=== PATIENT | female | born 1985 | race Caucasian/White ===

== ENCOUNTER 2017-10-17 19:16 | Outpatient (CLI) | payer MEDICAID | END 2017-10-17 23:59 | disposition short-term general hospital (02) | LOC: EMS 19:16 | PROVIDERS: ATTEND Surgery | DX: O26.893 Other specified pregnancy related conditions, third trimester (principal) | CPT/HCPCS: A0425; A0427 ==

== ENCOUNTER 2020-02-10 08:00 | Outpatient (CLI) | payer MEDICAID | END 2020-02-10 23:59 | disposition home or self-care (01) | LOC: LAB.R 08:00 | PROVIDERS: ATTEND Family Medicine | DX: J06.9 Acute upper respiratory infection, unspecified (principal) | CPT/HCPCS: 81599; 87275; 87276 ==

== ENCOUNTER 2020-11-01 08:00 | Outpatient (CLI) | payer MEDICAID ==
[2020-11-01 13:04] LABS: CALCIUM 9.5 mg/dL (8.5-10.3); CREATININE 0.7 mg/dL (0.4-1.0)
== END 2020-11-01 23:59 | disposition home or self-care (01) ==
LOC: LAB.WCP 08:00
PROVIDERS: ATTEND Family Medicine
DX: L73.2 Hidradenitis suppurativa (principal)
CPT/HCPCS: 36415; 80048

== ENCOUNTER 2021-01-18 08:00 | Outpatient (CLI) | payer MEDICAID ==
[2021-01-18 18:35] LABS: CALCIUM 9.7 mg/dL (8.5-10.3); CREATININE 0.7 mg/dL (0.4-1.0)
== END 2021-01-18 23:59 | disposition home or self-care (01) ==
LOC: LAB.WCP 08:00
PROVIDERS: ATTEND Family Medicine
DX: L73.2 Hidradenitis suppurativa (principal); F41.9 Anxiety disorder, unspecified
CPT/HCPCS: 36415; 80048; 84443

== ENCOUNTER 2021-01-31 08:00 | Outpatient (CLI) | payer MEDICAID | END 2021-01-31 23:59 | disposition home or self-care (01) | LOC: LAB.WCP 08:00 | PROVIDERS: ATTEND Family Medicine | DX: R30.0 Dysuria (principal) | CPT/HCPCS: 87086 ==

== ENCOUNTER 2021-03-27 12:12 | Outpatient (CLI) | payer MEDICAID ==
--- NOTE | 2021-03-27 15:44 | XRAY Report ---
PROCEDURE: Knee 4 View LT INDICATIONS: KNEE PAIN LEFT (KNEE STANDING) TECHNIQUE: 3 views of the left knee(s) were acquired. COMPARISON: None. FINDINGS: Bones: No fractures or dislocations. No suspicious bony lesions. Soft tissues: No joint effusion. No suspicious soft tissue calcifications. IMPRESSION: No acute finding. Reviewed by: Joel Larose MD on 03/27/2021 3:43 PM PDT Approved by: Joel Larose MD on 03/27/2021 3:43 PM PDT Station ID: [id number]
== END 2021-03-27 12:13 | disposition home or self-care (01) ==
LOC: DI 12:12
PROVIDERS: ATTEND Family Medicine
DX: M25.562 Pain in left knee (principal)

== ENCOUNTER 2021-05-08 14:30 | Outpatient (CLI) | payer MEDICAID ==
--- NOTE | 2021-05-08 13:14 | XRAY Report ---
PROCEDURE: Knee 2 View LT INDICATIONS: L KNEE PX TECHNIQUE: 2 views of the left knee(s) were acquired. COMPARISON: None. FINDINGS: Bones: No fractures or dislocations. No suspicious bony lesions. Mild medial compartment narrowing bilaterally. Soft tissues: No joint effusion. No suspicious soft tissue calcifications. IMPRESSION: Mild bilateral medial compartment narrowing. No acute fracture. No osseous lesion. If sym ptoms and/or clinical suspicion for pathology continue, further assessment with repeat plain films, o r advanced imaging (e.g., CT, MRI, or bone scan) is recommended for further assessment. Reviewed by: Corwin Li MD on 05/08/2021 1:12 PM PDT Approved by: Corwin Li MD on 05/08/2021 1:12 PM PDT Station ID: [id number]
== END 2021-05-08 23:59 | disposition home or self-care (01) ==
LOC: DI.N 14:30
PROVIDERS: ATTEND Physician Assistant
DX: M25.562 Pain in left knee (principal)

== ENCOUNTER 2021-11-14 10:52 | Outpatient (CLI) | payer MEDICAID ==
[2021-11-15 14:47] LABS: HIV AG/AB 4TH GEN NON-REACTIVE (NON-REACTIVE)
[2021-11-16 09:46] LABS: HSV 1 IGG TYPE SPECIFIC AB <0.90 index; HSV 2 IGG TYPE SPECIFIC AB 4.89 index
== END 2021-11-14 23:59 | disposition home or self-care (01) ==
LOC: LAB.WCP 10:52
PROVIDERS: ATTEND Family Medicine
DX: Z11.3 Encounter for screening for infections with a predominantly sexual mode of transmission (principal)
CPT/HCPCS: 81599; 86592; 86695; 86696; 87389

== ENCOUNTER 2022-01-11 18:52 | Outpatient (CLI) | payer MEDICAID ==
--- NOTE | 2022-01-12 08:20 | XRAY Report ---
PROCEDURE: Chest 2 View X-Ray INDICATIONS: DYSPNEA ON EXERTION TECHNIQUE: 2 view(s) of the chest. COMPARISON: None. FINDINGS: SUPPORT DEVICES: None. LUNGS/PLEURA: No focal consolidation, pleural effusion or space-occupying pneumothorax. MEDIASTINUM: The cardiomediastinal silhouette is within normal limits. BONES/SOFT TISSUES: No acute abnormality. IMPRESSION: 1.No acute cardiopulmonary abnormality. Reviewed by: Lb Mosley MD on 01/12/2022 8:18 AM [facility] Approved by: Lb Mosley MD on 01/12/2022 8:18 AM [facility] Station ID: [id number]
== END 2022-01-11 23:59 | disposition home or self-care (01) ==
LOC: DI.N 18:52
PROVIDERS: ATTEND Physician Assistant
DX: R06.09 Other forms of dyspnea (principal); Z20.822 Contact with and (suspected) exposure to COVID-19

== ENCOUNTER 2022-02-04 16:00 | Outpatient (CLI) | payer MEDICAID | END 2022-02-04 23:59 | disposition home or self-care (01) | LOC: LAB 16:00 | PROVIDERS: ATTEND Family Medicine | DX: R30.0 Dysuria (principal) | CPT/HCPCS: 87077; 87086 ==

== ENCOUNTER 2022-02-14 08:00 | Outpatient (CLI) | payer MEDICAID ==
[2022-02-15 01:22] LABS: BACTERIAL VAGINOSIS DNA NEGATIVE (NEGATIVE); CANDIDA GLABRATA DNA NEGATIVE (NEGATIVE); CANDIDA GROUP DNA NEGATIVE (NEGATIVE); CANDIDA KRUSEI DNA NEGATIVE (NEGATIVE); TRICHOMONAS VAGINALIS DNA NEGATIVE (NEGATIVE)
[2022-02-15 01:52] LABS: CHLAMYDIA TRACHOMATIS DNA NEGATIVE (NEGATIVE); NEISSERIA GONORRHOEAE DNA NEGATIVE (NEGATIVE); TRICHOMONAS VAGINALIS DNA NEGATIVE (NEGATIVE)
== END 2022-02-14 23:59 ==
LOC: LAB.N 08:00
PROVIDERS: ATTEND Family Medicine
DX: R30.0 Dysuria (principal); N89.8 Other specified noninflammatory disorders of vagina
CPT/HCPCS: 87086; 87491; 87591; 87661; 87801

== ENCOUNTER 2022-06-23 08:00 | Outpatient (CLI) | payer MEDICAID | END 2022-06-23 23:59 | disposition home or self-care (01) | LOC: LAB.N 08:00 | PROVIDERS: ATTEND Nurse Practitioner | DX: Z32.00 Encounter for pregnancy test, result unknown (principal) | CPT/HCPCS: 36415; 84702; 84703 ==

== ENCOUNTER 2023-04-18 19:04 | Outpatient (CLI) | payer MEDICAID | END 2023-04-18 23:59 | disposition critical access hospital (66) | LOC: EMS 19:04 | DX: R06.02 Shortness of breath (principal); R09.89 Other specified symptoms and signs involving the circulatory and respiratory systems; Z20.822 Contact with and (suspected) exposure to COVID-19 | CPT/HCPCS: A0425; A0429; A0999 ==

== ENCOUNTER 2023-04-18 19:24 | Inpatient (IN) | payer MEDICAID ==
[2023-04-18] MEDS ORDERED: IPRATROPIUM/ALBUTEROL 3 ML NEB INH STA (19:37)
[2023-04-18] MEDS ORDERED: methylPREDNISolone SUCCINATE 125 MG/2 ML VIAL IVP STA (19:38)
[2023-04-18] MEDS ORDERED: ALBUTEROL NEB 2.5 MG/3 ML INH STA ×4 (19:38→21:27)
[2023-04-18] MEDS ORDERED: KETOROLAC 30 MG/ML VIAL IVP STA (19:42)
--- NOTE | 2023-04-18 19:42 | ED Physician Documentation ---
History of Present Illness - Stated complaint Stated Complaint: SOA - Chief complaint Chief Complaint: Resp - History obtained from History obtained from: Patient, EMS - Additonal information Additional information: 37-year-old woman with history of asthma and seasonal allergies presents with COVID exposure 8 days ago and cough productive of clear sputum over the past few days with shortness of breath worsening today despite 3 nebulizer treatments at home. Patient presented to clinic and was found to have room air oxygen saturation of 84%. EMS was called and 4 L of oxygen was administered with improvement. Patient denies chest pain but does endorse body aches, fatigue, fever and chills, productive cough. 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, Other HEENT: Tonsil/Adenoidectomy - Present Medications Home Medications: Ambulatory Orders Medication Instructions Recorded Confirmed HYDROcod/ACETAM 5/325 [[place] 5/325] 1 - 2 tablet PO Q6H PRN #20 tablet 06/06/22 Ondansetron Odt [Zofran] 4 mg TL Q6H PRN #10 tablet 06/06/22 cephALEXin [Keflex] 500 mg PO Q6H #28 cap 06/06/22 - Allergies Allergies/Adverse Reactions: Allergies Allergy/AdvReac Type Severity Reaction Status Date / Time amoxicillin AdvReac Unknown Verified 06/06/22 05:15 Penicillins AdvReac Unknown Verified 06/06/22 05:15 - Social History Does the pt smoke?: No Smoking Status: Never smoker Does the pt drink ETOH?: Yes Does the pt have substance abuse?: No - Immunizations Immunizations are current?: Yes - POLST Patient has POLST: No PD ED PE NORMAL - Vitals Vital signs reviewed: Yes - General General: Alert and oriented X 3, No acute distress, Well developed/nourished - HEENT HEENT: Atraumatic, PERRL, EOMI - Neck Neck: Supple, no meningeal sign - Cardiac Cardiac: RRR - Respiratory Respiratory: Other (BL diffuse wheezing. no accessory muscle use. at the time of my exam, patient had o2 sat 93% RA) - Abdomen Abdomen: Non tender, Non distended - Derm Derm: Normal color, Warm and dry - Extremities Extremities: No deformity, No edema - Neuro Neuro: Alert and oriented X 3 Results - Vitals Vitals: Vital Signs - 24 hr 04/18/23 04/18/23 04/18/23 19:29 19:50 20:00 Temperature 36.6 C Heart Rate 103 H 96 98 Respiratory 22 26 H 24 Rate Blood Pressure 134/99 H O2 Saturation 93 If not protocol 2 2 : Oxygen Flow, liters/minute 04/18/23 04/18/23 04/18/23 20:10 20:15 20:16 Temperature Heart Rate 92 Respiratory 24 Rate Blood Pressure O2 Saturation 90 L 95 If not protocol 2 3 : Oxygen Flow, liters/minute 04/18/23 20:46 Temperature Heart Rate 103 H Respiratory 20 Rate Blood Pressure 130/67 O2 Saturation 93 If not protocol 3 : Oxygen Flow, liters/minute Oxygen O2 Source Nasal cannula Oxygen Flow Rate 2 - Labs Labs: Laboratory Tests 04/18/23 04/18/23 04/18/23 19:50 19:50 19:50 WBC 14.2 H RBC 4.89 Hgb 14.3 Hct 43.7 MCV 89.4 MCH 29.2 MCHC 32.7 RDW 12.9 Plt Count 228 MPV 10.0 Neut # (Auto) Not Reportable Lymph # (Auto) Not Reportable [place] # (Auto) Not Reportable Eos # (Auto) Not Reportable Baso # (Auto) Not Reportable Absolute Nucleated RBC Not Reportable Total Counted 100 Band Neuts % (Manual) 0 Abnorm Lymph % (Manual) 0 Nucleated RBC % Not Reportable Neutrophils # (Manual) 9.4 H Lymphocytes # (Manual) 2.4 Monocytes # (Manual) 0.7 Eosinophils # (Manual) 1.7 H Basophils # (Manual) 0.0 Differential Comment MANUAL DIFFERENTIAL Platelet Estimate NORMAL (130-450,000) Platelet Morphology NORMAL APPEARANCE RBC Morph Micro Appear NORMAL APPEARANCE VBG pH 7.383 VBG pCO2 45.7 VBG pO2 29.4 VBG HCO3 26.6 VBG Total CO2 28.0 VBG O2 Saturation 59.0 L VBG Base Excess 1.0 Sodium 140 Potassium 3.9 Chloride 104 Carbon Dioxide 28 Anion Gap 8.0 BUN 8 Creatinine 0.4 Estimated GFR (MDRD) 182 Glucose 109 H Calcium 8.7 Total Bilirubin 0.9 AST 17 ALT 16 Alkaline Phosphatase 66 Total Protein 7.1 Albumin 3.7 Globulin 3.4 Albumin/Globulin Ratio 1.1 Lipase 25 SARS-CoV-2 (PCR) 04/18/23 19:55 WBC RBC Hgb Hct MCV MCH MCHC RDW Plt Count MPV Neut # (Auto) Lymph # (Auto) [place] # (Auto) Eos # (Auto) Baso # (Auto) Absolute Nucleated RBC Total Counted Band Neuts % (Manual) Abnorm Lymph % (Manual) Nucleated RBC % Neutrophils # (Manual) Lymphocytes # (Manual) Monocytes # (Manual) Eosinophils # (Manual) Basophils # (Manual) Differential Comment Platelet Estimate Platelet Morphology RBC Morph Micro Appear VBG pH VBG pCO2 VBG pO2 VBG HCO3 VBG Total CO2 VBG O2 Saturation VBG Base Excess Sodium Potassium Chloride Carbon Dioxide Anion Gap BUN Creatinine Estimated GFR (MDRD) Glucose Calcium Total Bilirubin AST ALT Alkaline Phosphatase Total Protein Albumin Globulin Albumin/Globulin Ratio Lipase SARS-CoV-2 (PCR) NOT DETECTED PD Medical Decision Making - ED course ED course: 37-year-old woman with hx asthma and recent COVID exposure presents with productive cough, wheezing, and shortness of breath with O2 sat 84% room air in clinic. She is now satting 93% room air in the emergency department but endorsing subjective shortness of breath therefore we will provide nebulizer treatments, steroids, and check a chest x-ray, CBC, abdominal panel, and venous blood gas. IV toradol provided for myalgias and general malaise with improvement. Patient with leukocytosis WBC 14.2 on labwork. VBG not indicating co2 retention. she has persistent coarse breath sounds bilaterally after 3 neb treatments and is persistently hypoxic. O2 sat dropped after initial eval on RA into mid 80s therefore she was placed on oxygen. She is currently requiring 4L o2 and satting 90%. CXR per my interpretation and that of outside radiologist is significant for interstitial prominence and RLL opacity concerning for pneumonia. 2L IVF, IV levofloxacin, and blood cultures/lactate have been ordered. Plan to admit for hypoxia in setting of RLL and interstitial pneumonia. Patient meets SIRS criteria (leukocytosis, tachycardia, indicating sepsis given RLL pneumonia on CXR). d/w Dr. Cali, telehospitalist for admission Departure - Departure Disposition: ED Place in Observation Clinical Impression: Pneumonia, Hypoxia, Sepsis Condition: Stable
[2023-04-18 19:56] LABS: BASOPHILS % (AUTO) 0.9 %; EOSINOPHILS % (AUTO) 10.1 %; HCT - HEMATOCRIT 43.7 % (37.0-47.0); HGB - HEMOGLOBIN 14.3 g/dL (12.0-16.0); LYMPHOCYTES % (AUTO) 11.7 %; MEAN CORPUSCULAR HEMOGLOBIN 29.2 pg (27.0-31.0); MEAN CORPUSCULAR HGB CONC 32.7 g/dL (32.0-36.0); MEAN CORPUSCULAR VOLUME 89.4 fL (81.0-99.0); MONOCYTES % (AUTO) 7.3 %; NEUTROPHILS % (AUTO) 69.7 %; PLT - PLATELET COUNT 228 10^3/uL (130-450); RED BLOOD COUNT 4.89 10^6/uL (4.20-5.40); RED CELL DISTRIBUTION WIDTH 12.9 % (12.0-15.0); VBG PH 7.383 (7.31-7.41); WHITE BLOOD COUNT 14.2 x10^3/uL (4.8-10.8)
[2023-04-18 19:57] LABS: VBG HCO3 26.6 mmol/L (23-28); VBG PCO2 45.7 mmHg (41-51); VBG PO2 29.4 mmHg (25-47)
[2023-04-18 19:58] LABS: ABNORMAL LYMPHS % (MANUAL) 0 %; BAND NEUTROPHILS % (MANUAL) 0 %
--- NOTE | 2023-04-18 20:02 | XRAY Report ---
PROCEDURE: Chest 1 View X-Ray INDICATIONS: soa TECHNIQUE: One view of the chest was acquired. COMPARISON: None. FINDINGS: Surgical changes and devices: None. Lungs and pleura: Mild diffuse perihilar interstitial thickening. Small airspace opacity at the righ t lateral lung base. Mediastinum: Mediastinal contours appear normal. Heart size is normal. Bones and chest wall: No suspicious bony lesions. Overlying soft tissues appear unremarkable. IMPRESSION: Mild perihilar interstitial thickening may indicate bronchitis or pneumonitis. There is a small amoun t of airspace opacity in the right lower lung which may be infectious or postobstructive atelectasis. Reviewed by: Julia Ireland MD on 04/18/2023 8:01 PM PDT Approved by: Julia Ireland MD on 04/18/2023 8:01 PM PDT Station ID: [id number]
[2023-04-18 20:16] LABS: ALBUMIN 3.7 g/dL (3.2-5.5); ALBUMIN/GLOBULIN RATIO 1.1 (1.0-2.2); BILIRUBIN,TOTAL 0.9 mg/dL (0.2-1.0); CALCIUM 8.7 mg/dL (8.5-10.3); CREATININE 0.4 mg/dL (0.4-1.0); POTASSIUM 3.9 mmol/L (3.5-5.0); TOTAL PROTEIN 7.1 g/dL (6.7-8.2)
[2023-04-18 20:19] LABS: DIFFERENTIAL COMMENT MANUAL DIFFERENTIAL; EOSINOPHILS # (MANUAL) 1.7 10^3/uL (0-0.7); LYMPHOCYTES # (MANUAL) 2.4 10^3/uL (1.5-3.5); LYMPHOCYTES % (MANUAL) 17 %; MONOCYTES # (MANUAL) 0.7 10^3/uL (0.0-1.0); NEUTROPHILS # (MANUAL) 9.4 10^3/uL (1.5-6.6); PLATELET ESTIMATE, MANUAL NORMAL (130-450,000) (NORMAL); PLATELET MORPHOLOGY NORMAL APPEARANCE (NORMAL); RBC MORPHOLOGY (MULTIPLE) NORMAL APPEARANCE (NORMAL)
[2023-04-18] MEDS ORDERED: ALBUTEROL NEB 2.5 MG/3 ML INH ONE (21:27)
[2023-04-18] MEDS ORDERED: levoFLOXacin 750 MG/150 ML 750 MG/150 ML BAG IV STA (21:27)
[2023-04-18] MEDS ORDERED: SODIUM CHLORIDE 0.9% 1,000 ML IV STA ×2 (21:27→21:32)
--- NOTE | 2023-04-18 21:43 | HISTORY & PHYSICAL EXAMINATION ---
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, Other HEENT: reports: Tonsil/Adenoidectomy - POLST Patient has POLST: No Meds/Allgy - Home Medications Home Medications: Ambulatory Orders Medication Instructions Recorded Confirmed HYDROcod/ACETAM 5/325 [[place] 5/325] 1 - 2 tablet PO Q6H PRN #20 tablet 06/06/22 Ondansetron Odt [Zofran] 4 mg TL Q6H PRN #10 tablet 06/06/22 cephALEXin [Keflex] 500 mg PO Q6H #28 cap 06/06/22 - Allergies Allergies/Adverse Reactions: Allergies Allergy/AdvReac Type Severity Reaction Status Date / Time amoxicillin AdvReac Unknown Verified 06/06/22 05:15 Penicillins AdvReac Unknown Verified 06/06/22 05:15 Review of Systems - Respiratory Respiratory: reports: Cough, SOB at rest, SOB with exertion Exam - Vital Signs Vital Signs: Vital Signs x48h Temp Pulse Resp BP Pulse Ox O2 Flow Rate 04/18/23 20:46 103 H 20 130/67 93 3 04/18/23 20:16 95 3 04/18/23 20:15 90 L 04/18/23 20:10 92 24 2 04/18/23 20:00 98 24 2 04/18/23 19:50 96 26 H 2 04/18/23 19:29 36.6 C 103 H 22 134/99 H 93 - Physical Exam General Appearance: positive: No acute distress Eyes Bilateral: positive: Normal inspection Respiratory: positive: Wheezes, Rhonchi Cardiovascular: positive: Regular rate & rhythm Abdomen: positive: Non-tender Skin: positive: No rash Neurologic/Psychiatric: positive: Oriented x3 Conclusion/Plan - Lab Results Fish Bones: 04/18/23 19:50 04/18/23 19:50 - Other Other Results/Comments: 37 y/o F # acute respiratory failure hypoxic: probabey due to PNA and asthma: levaqmya and tawnya, neb treatment, 02, counseled to stop smoking # astham: nebs, O2 # dvt prophylaxis: heparin sq # code full discussed
[2023-04-18] MEDS ORDERED: ONDANSETRON 4 MG/2 ML VIAL IVP PRN (21:50)
[2023-04-18] MEDS ORDERED: SODIUM CHLORIDE FLUSH 0.9% 10 ML SYRINGE IVP PRN (21:50)
[2023-04-18] MEDS ORDERED: ACETAMINOPHEN 325 MG TABLET PO PRN (21:50)
[2023-04-18] MEDS ORDERED: IPRATROPIUM/ALBUTEROL 3 ML NEB INH PRN (21:54)
--- NOTE | 2023-04-18 22:05 | PROVIDER PROGRESS NOTE ---
Instrumental Musician Note - Instrumental Musician Note Instrumental Musician Note: cxr shows LLL consolidation, more consistent with CAP than COVID and pt tested negative I performed this consultation using real-j[facility] telehealth tools including a live video connection between my location and the patient's location. As the provider for this telehealth service, I attest that I introduced myself to the patient and/or the family, provided my credentials, disclosed my location and determined that based on my review of patient's chart and/or discussion with members of the patient's treatment team, telemedicine via real time, 2 way, interactive audio and video platform is an appropriate and effective means of providing service. The patient/family and I mutually agree that this visit is appropriate for telemedicine as well. Patients have been informed of and agreed to telemedicine management by partnership of [facility] and hospital administration, knowing the limitations of telemedicine. Some elements of this visit were assisted with the audiovisual technology and the bedside nurse. Total time is 45 minutes of which greater than 50% was spent in direct patient care. I answered all medical questions to the best of my ability.
[2023-04-19] MEDS: DOXYCYCLINE INJ 100 MG in SODIUM CHLORIDE 0.9% MINIBAG 100 ML IV SCH ×3 (00:28→22:06)
[2023-04-19] MEDS: HEPARIN 5,000 UNIT/ML VIAL SUBQ SCH ×3 (00:29→22:07)
[2023-04-19] MEDS: SODIUM CHLORIDE FLUSH 0.9% 10 ML SYRINGE IVP SCH ×4 (00:29→23:48)
[2023-04-19] MEDS: SODIUM CHLORIDE 0.9% 1,000 ML IV SCH ×3 (00:29→23:48)
[2023-04-19 05:06] LABS: BASOPHILS % (AUTO) 0.2 %; EOSINOPHILS % (AUTO) 0.1 %; HCT - HEMATOCRIT 40.5 % (37.0-47.0); HGB - HEMOGLOBIN 13.4 g/dL (12.0-16.0); LYMPHOCYTES # (AUTO) 0.7 10^3/uL (1.5-3.5); MEAN CORPUSCULAR HGB CONC 33.1 g/dL (32.0-36.0); MEAN CORPUSCULAR VOLUME 87.7 fL (81.0-99.0); MEAN PLATELET VOLUME 9.6 fL (7.9-10.8); MONOCYTES # (AUTO) 0.2 10^3/uL (0.0-1.0); NEUTROPHILS % (AUTO) 89.4 %; PLT - PLATELET COUNT 310 10^3/uL (130-450); RED BLOOD COUNT 4.62 10^6/uL (4.20-5.40); WHITE BLOOD COUNT 8.9 x10^3/uL (4.8-10.8)
[2023-04-19 05:15] LABS: CALCIUM 9.1 mg/dL (8.5-10.3); CREATININE 0.6 mg/dL (0.4-1.0); POTASSIUM 4.1 mmol/L (3.5-5.0)
[2023-04-19] MEDS: IPRATROPIUM/ALBUTEROL 3 ML NEB INH SCH ×3 (11:15→18:52)
--- NOTE | 2023-04-19 14:36 | PHARMACY PROGRESS NOTE ---
- Best Possible Medication History Admit Date and Time: 04/18/230 Processed by: Pharmacy Medication History completed: Yes Patient Interview: Completed Secondary Source(s): Insurance records (PT knows her meds well. States she gets swollen throat and hives with both amox and pennicilin. When asked how she tollerated the cephalexin prescribed in January pt states she gets hives and a simliar reaction but not as bad. Staes she has had to go to the hospital for the rxns to the amox and pcn.) As the person ultimately responsible for medication therapy, providers are able to order a medication from an existing home medication list in [facility] via the "Reconcile Routine" prior to Confirmation of that medication by pharmacy retail support specialist. Such practice is discouraged except when the physician, in their clinical judgment, deems that a medical need exists for a medication without regard to previous use.
--- NOTE | 2023-04-19 15:19 | PROVIDER PROGRESS NOTE ---
Assessment/Plan - Problem List (1) Acute respiratory failure with hypoxia Assessment/Plan: Patient still needs supplemental O2 to reach saturations greater than 92%. The cause for desaturating is the pneumonia and asthma exacerbation Plan: Treat the underlying pneumonia and asthma exacerbation Promote smoking cessation Continue with supplemental O2, weaning down as tolerated to room air, keeping saturations greater than 92% (2) Pneumonia Assessment/Plan: After blood cultures were taken, the patient was started on empiric levaquin and doxycycline Plan: Order sputum culture We will add Mucinex for pulmonary toilet We will continue with the doxycycline but we need to change the Levaquin since it can add to QT prolongation. Discussed with pharmacy and we will start ertapenem (3) Asthmatic bronchitis with acute exacerbation Assessment/Plan: The cause is the pneumonia Plan: We will order scheduled nebulizers, continue with the as needed nebulizers ordered by telemedicine doctor Will add Mucinex for pulmonary toilet We will continue treating the underlying pneumonia Continue with supplemental O2, target saturations over 92% (4) Long QT syndrome Assessment/Plan: This Dx was found in old records Plan: We will stop meds started by the telemedicine admitting doctor that can add to long QT: Zofran and Levaquin (5) Tobacco use Assessment/Plan: This patient needs education regarding stopping smoking, given her underlying asthma Plan: We will give nicotine patch for urgees (6) Obesity, Class II, BMI 35-39.9 Assessment/Plan: This makes aspects of her care more difficult - Current Meds Current Meds: Current Medications Generic Name Dose Route Start Last Admin Trade Name Freq PRN Reason Stop Dose Admin Acetaminophen 650 mg 04/18/23 21:50 04/19/23 00:29 Acetaminophen 325 Mg Tablet PO 650 mg Q4HR PRN Administration Pain 1 to 4, or Fever Albuterol/Ipratropium 3 ml 04/19/23 11:00 04/19/23 11:15 Ipratropium/Albuterol 3 Ml Neb INH 3 ml RTQID ZACK Administration Heparin Sodium (Porcine) 5,000 unit 04/18/23 22:00 04/19/23 08:52 Heparin 5,000 Unit/Ml Vial SUBQ 04/20/23 00:01 5,000 unit BID ZACK Administration Sodium Chloride 1,000 mls @ 100 mls/hr 04/18/23 22:00 04/19/23 12:45 Normal Saline 0.9% IV 100 mls/hr .Q10H ZACK Administration Doxycycline Hyclate 100 mg/ 100 mls @ 100 mls/hr 04/18/23 23:00 04/19/23 08:49 Sodium Chloride IV 100 mls/hr BID ZACK Administration Sodium Chloride 10 ml 04/19/23 01:00 04/19/23 08:50 Sodium Chloride Flush 0.9% 10 Ml Syringe IVP 10 ml 0100,0900,1700 ZACK Administration - Lab Result Fish Bone Diagrams: 04/19/23 05:00 04/19/23 05:00 - Additional Planning My Orders: My Active Orders 04/19/23 CUL, RESPIRATORY [RM] Stat 04/19/23 10:25 Nebulizer/MDI Tx. [RC] .QID 04/19/23 10:26 Ibuprofen [Motrin] 600 mg PO Q6HR PRN 04/19/23 10:27 Miscellaenous Nursing Order [RC] QSHIFT 04/19/23 11:00 Ipratropium/Albuterol [Duoneb] 3 ml INH RTQID 04/19/23 17:00 Saccharomyces Boulardii [Florastor] 250 mg PO BIDWM 04/20/23 05:00 BMP - BASIC METABOLIC PANEL [CHEM] DAILYLAB CBC - COMP BLD CT W/AUTO DIFF [HEME] DAILYLAB 04/20/23 09:00 Enoxaparin [Lovenox] 40 mg SUBQ DAILY Subjective - Subjective Patient Reports: Shortness of Breath (She is requesting more nebulizers (only prn nebs were ordered by the night telemedicine admitting doctor)) Objective Vital Signs: Vital Signs - 24 hr 04/18/23 04/18/23 04/18/23 19:29 19:50 20:00 Temperature 36.6 C Heart Rate 103 H 96 98 Heart Rate [ Brachial] Respiratory 22 26 H 24 Rate Blood Pressure 134/99 H Blood Pressure [Left Brachial artery] O2 Saturation 93 If not protocol 2 2 : Oxygen Flow, liters/minute 04/18/23 04/18/23 04/18/23 20:10 20:15 20:16 Temperature Heart Rate 92 Heart Rate [ Brachial] Respiratory 24 Rate Blood Pressure Blood Pressure [Left Brachial artery] O2 Saturation 90 L 95 If not protocol 2 3 : Oxygen Flow, liters/minute 04/18/23 04/18/23 04/18/23 20:46 21:25 22:55 Temperature 36.3 C L Heart Rate 103 H 93 Heart Rate [ 103 H Brachial] Respiratory 20 28 H 16 Rate Blood Pressure 130/67 Blood Pressure 141/88 H [Left Brachial artery] O2 Saturation 93 93 If not protocol 3 5 4 : Oxygen Flow, liters/minute 04/19/23 04/19/23 04/19/23 04:51 08:00 11:16 Temperature 36.4 C L 36.4 C L Heart Rate 110 H Heart Rate [ 105 H 90 Brachial] Respiratory 19 20 22 Rate Blood Pressure Blood Pressure 122/64 128/79 [Left Brachial artery] O2 Saturation 93 94 If not protocol 5 5 5 : Oxygen Flow, liters/minute 04/19/23 04/19/23 04/19/23 11:20 11:54 15:05 Temperature 36.4 C L 36.6 C Heart Rate Heart Rate [ 113 H 101 H Brachial] Respiratory 20 20 Rate Blood Pressure Blood Pressure 128/70 139/83 H [Left Brachial artery] O2 Saturation 93 95 If not protocol 5 5 5 : Oxygen Flow, liters/minute Oxygen O2 Source Oxymask Oxygen Flow Rate 2 I&O (Last 24 Hrs): Intake and Output Totals x24h 04/17/23 04/18/23 04/19/23 23:59 23:59 23:59 Intake Total 150 2240 Balance 150 2240 General: Alert, No acute distress HEENT: Mucous membr. moist/pink, Other (She is still wearing an oxy mask) Neck: Supple Neuro: Alert Cardiovascular: Regular rate, No murmurs Respiratory: No respiratory distress (On her Ventimask), Wheezes Abdomen: Soft, Other (Obese) Extremities: No clubbing, No edema - Results Results: Laboratory Results WBC 8.9 x10^3/uL (4.8-10.8) 04/19/23 05:00 RBC 4.62 10^6/uL (4.20-5.40) 04/19/23 05:00 Hgb 13.4 g/dL (12.0-16.0) 04/19/23 05:00 Hct 40.5 % (37.0-47.0) 04/19/23 05:00 MCV 87.7 fL (81.0-99.0) 04/19/23 05:00 MCH 29.0 pg (27.0-31.0) 04/19/23 05:00 MCHC 33.1 g/dL (32.0-36.0) 04/19/23 05:00 RDW 13.0 % (12.0-15.0) 04/19/23 05:00 Plt Count 310 10^3/uL (130-450) 04/19/23 05:00 MPV 9.6 fL (7.9-10.8) 04/19/23 05:00 Neut # (Auto) 8.0 10^3/uL (1.5-6.6) H 04/19/23 05:00 Lymph # (Auto) 0.7 10^3/uL (1.5-3.5) L 04/19/23 05:00 [place] # (Auto) 0.2 10^3/uL (0.0-1.0) 04/19/23 05:00 Eos # (Auto) 0.0 10^3/uL (0.0-0.7) 04/19/23 05:00 Baso # (Auto) 0.0 10^3/uL (0.0-0.1) 04/19/23 05:00 Absolute Nucleated RBC 0.00 x10^3/uL 04/19/23 05:00 Total Counted 100 04/18/23 19:50 Band Neuts % (Manual) 0 % (0-10) 04/18/23 19:50 Abnorm Lymph % (Manual) 0 % 04/18/23 19:50 Nucleated RBC % 0.0 /100WBC 04/19/23 05:00 Neutrophils # (Manual) 9.4 10^3/uL (1.5-6.6) H 04/18/23 19:50 Lymphocytes # (Manual) 2.4 10^3/uL (1.5-3.5) 04/18/23 19:50 Monocytes # (Manual) 0.7 10^3/uL (0.0-1.0) 04/18/23 19:50 Eosinophils # (Manual) 1.7 10^3/uL (0-0.7) H 04/18/23 19:50 Basophils # (Manual) 0.0 10^3/uL (0-0.1) 04/18/23 19:50 Differential Comment MANUAL DIFFERENTIAL 04/18/23 19:50 Platelet Estimate NORMAL (130-450,000) (NORMAL) 04/18/23 19:50 Platelet Morphology NORMAL APPEARANCE (NORMAL) 04/18/23 19:50 RBC Morph Micro Appear NORMAL APPEARANCE (NORMAL) 04/18/23 19:50 VBG pH 7.383 (7.31-7.41) 04/18/23 19:50 VBG pCO2 45.7 mmHg (41-51) 04/18/23 19:50 VBG pO2 29.4 mmHg (25-47) 04/18/23 19:50 VBG HCO3 26.6 mmol/L (23-28) 04/18/23 19:50 VBG Total CO2 28.0 mmol/L (24-29) 04/18/23 19:50 VBG O2 Saturation 59.0 % (60-80) L 04/18/23 19:50 VBG Base Excess 1.0 mmol/L (-2 - +2) 04/18/23 19:50 Sodium 142 mmol/L (135-145) 04/19/23 05:00 Potassium 4.1 mmol/L (3.5-5.0) 04/19/23 05:00 Chloride 109 mmol/L (101-111) 04/19/23 05:00 Carbon Dioxide 22 mmol/L (21-32) 04/19/23 05:00 Anion Gap 11.0 (6-13) 04/19/23 05:00 BUN 11 mg/dL (6-20) 04/19/23 05:00 Creatinine 0.6 mg/dL (0.4-1.0) 04/19/23 05:00 Estimated GFR (MDRD) 114 (>89) 04/19/23 05:00 Glucose 144 mg/dL (70-100) H 04/19/23 05:00 Lactic Acid 1.7 mmol/L (0.5-2.2) 04/19/23 05:00 Calcium 9.1 mg/dL (8.5-10.3) 04/19/23 05:00 Total Bilirubin 0.9 mg/dL (0.2-1.0) 04/18/23 19:50 AST 17 IU/L (10-42) 04/18/23 19:50 ALT 16 IU/L (10-60) 04/18/23 19:50 Alkaline Phosphatase 66 IU/L (42-121) 04/18/23 19:50 Total Protein 7.1 g/dL (6.7-8.2) 04/18/23 19:50 Albumin 3.7 g/dL (3.2-5.5) 04/18/23 19:50 Globulin 3.4 g/dL (2.1-4.2) 04/18/23 19:50 Albumin/Globulin Ratio 1.1 (1.0-2.2) 04/18/23 19:50 Lipase 25 U/L (22-51) 04/18/23 19:50 SARS-CoV-2 (PCR) NOT DETECTED 04/18/23 19:55
[2023-04-19] MEDS: SACCHAROMYCES BOULARDII 250 MG CAPSULE PO SCH (17:03)
[2023-04-19] MEDS: ERTAPENEM 1 GM in SODIUM CHLORIDE 0.9% MINIBAG 100 ML IV SCH (17:03)
[2023-04-19] MEDS ORDERED: levoFLOXacin 500 MG/100 ML 500 MG/100 ML BAG IV SCH (21:00)
[2023-04-19] MEDS: IBUPROFEN 600 MG TABLET PO PRN (22:06)
[2023-04-19] MEDS: guaiFENesin 600 MG TABLET PO SCH (22:07)
[2023-04-19] MEDS: MONTELUKAST 10 MG TABLET PO SCH (22:07)
[2023-04-20 05:17] LABS: BASOPHILS # (AUTO) 0.1 10^3/uL (0.0-0.1); BASOPHILS % (AUTO) 0.9 %; EOSINOPHILS # (AUTO) 0.7 10^3/uL (0.0-0.7); EOSINOPHILS % (AUTO) 5.2 %; HCT - HEMATOCRIT 37.3 % (37.0-47.0); LYMPHOCYTES % (AUTO) 31.6 %; MEAN CORPUSCULAR HEMOGLOBIN 28.9 pg (27.0-31.0); MEAN CORPUSCULAR HGB CONC 32.2 g/dL (32.0-36.0); MEAN CORPUSCULAR VOLUME 89.9 fL (81.0-99.0); MEAN PLATELET VOLUME 9.8 fL (7.9-10.8); MONOCYTES # (AUTO) 0.7 10^3/uL (0.0-1.0); MONOCYTES % (AUTO) 5.3 %; NEUTROPHILS # (AUTO) 7.2 10^3/uL (1.5-6.6); NEUTROPHILS % (AUTO) 56.6 %; PLT - PLATELET COUNT 284 10^3/uL (130-450); RED BLOOD COUNT 4.15 10^6/uL (4.20-5.40); RED CELL DISTRIBUTION WIDTH 13.1 % (12.0-15.0); WHITE BLOOD COUNT 12.7 x10^3/uL (4.8-10.8)
[2023-04-20 05:47] LABS: CALCIUM 8.2 mg/dL (8.5-10.3); CREATININE 0.6 mg/dL (0.4-1.0); POTASSIUM 3.7 mmol/L (3.5-5.0)
[2023-04-20] MEDS: IPRATROPIUM/ALBUTEROL 3 ML NEB INH SCH ×4 (07:35→19:55)
[2023-04-20] MEDS: ENOXAPARIN 40 MG/0.4 ML SYRINGE SUBQ SCH (08:15)
[2023-04-20] MEDS: PANTOPRAZOLE 40 MG TABLET PO SCH (08:15)
[2023-04-20] MEDS: guaiFENesin 600 MG TABLET PO SCH ×2 (08:15→22:30)
[2023-04-20] MEDS: DICLOFENAC SODIUM DR 75 MG TABLET PO SCH (08:15)
[2023-04-20] MEDS: SACCHAROMYCES BOULARDII 250 MG CAPSULE PO SCH ×2 (08:15→17:20)
[2023-04-20] MEDS: DOXYCYCLINE INJ 100 MG in SODIUM CHLORIDE 0.9% MINIBAG 100 ML IV SCH ×2 (08:21→22:31)
[2023-04-20] MEDS: SODIUM CHLORIDE FLUSH 0.9% 10 ML SYRINGE IVP SCH ×2 (08:21→16:28)
[2023-04-20] MEDS: SODIUM CHLORIDE 0.9% 1,000 ML IV SCH (11:09)
--- NOTE | 2023-04-20 15:35 | PROVIDER PROGRESS NOTE ---
Assessment/Plan - Problem List (1) Acute respiratory failure with hypoxia Assessment/Plan: Patient still needs supplemental O2 to reach saturations greater than 92%. The cause for desaturating is the pneumonia and asthma exacerbation Plan: Treat the underlying pneumonia and asthma exacerbation Promote smoking cessation Continue with supplemental O2, weaning down as tolerated to room air, keeping saturations greater than 92%. But will not romote high saturations as she may be lethargic from CO2 retention. She would be willing to go home with a new home oxygen order if needed (2) Pneumonia Assessment/Plan: After blood cultures were taken, the patient was started on empiric levaquin and doxycycline Sputum culture was sent, awaiting results Plan: Cont Mucinex for pulmonary toilet We will continue with the doxycycline but we need to change the Levaquin since it can add to QT prolongation. Discussed with pharmacy and we started ertapenem (3) Asthmatic bronchitis with acute exacerbation Assessment/Plan: The cause is the pneumonia Plan: Cont scheduled nebulizers and as needed nebulizers Cont Mucinex for pulmonary toilet We will continue treating the underlying pneumonia Continue with supplemental O2, target saturations over 92% (4) Long QT syndrome Assessment/Plan: This Dx was found in old records Plan: We stopped meds started by the telemedicine admitting doctor that can add to long QT: Zofran and Levaquin (5) Tobacco use Assessment/Plan: This patient needs education regarding stopping smoking, given her underlying asthma Plan: Cont nicotine patch for urges (6) Obesity, Class II, BMI 35-39.9 Assessment/Plan: This makes aspects of her care more difficult - Current Meds Current Meds: Current Medications Generic Name Dose Route Start Last Admin Trade Name Freq PRN Reason Stop Dose Admin Acetaminophen 650 mg 04/18/23 21:50 04/19/23 00:29 Acetaminophen 325 Mg Tablet PO 650 mg Q4HR PRN Administration Pain 1 to 4, or Fever Albuterol/Ipratropium 3 ml 04/18/23 21:54 04/20/23 00:08 Ipratropium/Albuterol 3 Ml Neb INH 3 ml Q4HR PRN Administration Wheezing Albuterol/Ipratropium 3 ml 04/19/23 11:00 04/20/23 14:39 Ipratropium/Albuterol 3 Ml Neb INH Not Given RTQID ZACK Diclofenac Sodium 75 mg 04/20/23 08:00 04/20/23 08:[address] 75 Mg Tablet PO 75 mg DAILYWM ZACK Administration Enoxaparin Sodium 40 mg 04/20/23 09:00 04/20/23 08:15 Enoxaparin 40 Mg/0.4 Ml Syringe SUBQ 40 mg DAILY ZACK Administration Guaifenesin 600 mg 04/19/23 21:00 04/20/23 08:15 Guaifenesin 600 Mg Tablet PO 600 mg BID ZACK Administration Sodium Chloride 1,000 mls @ 100 mls/hr 04/18/23 22:00 04/20/23 11:09 Normal Saline 0.9% IV 100 mls/hr .Q10H ZACK Administration Doxycycline Hyclate 100 mg/ 100 mls @ 100 mls/hr 04/18/23 23:00 04/20/23 09:21 Sodium Chloride IV Infused BID ZACK Infusion Ertapenem 1 gm/ Sodium 100 mls @ 200 mls/hr 04/19/23 17:00 04/19/23 17:03 Chloride IV 200 mls/hr Q24H ZACK Administration Ibuprofen 600 mg 04/19/23 10:26 04/19/23 22:06 Ibuprofen 600 Mg Tablet PO 600 mg Q6HR PRN Administration Mild Pain or Fever>38C(100.4F) Montelukast Sodium 10 mg 04/19/23 21:00 04/19/23 22:07 Montelukast 10 Mg Tablet PO 10 mg QPM ZACK Administration Pantoprazole Sodium 40 mg 04/20/23 09:00 04/20/23 08:15 Pantoprazole 40 Mg Tablet PO 40 mg DAILY ZACK Administration Saccharomyces Boulardii 250 mg 04/19/23 17:00 04/20/23 08:15 Saccharomyces Boulardii 250 Mg Capsule PO 250 mg BIDWM ZACK Administration Sodium Chloride 10 ml 04/19/23 01:00 04/20/23 08:21 Sodium Chloride Flush 0.9% 10 Ml Syringe IVP 10 ml 0100,0900,1700 ZACK Administration - Lab Result Fish Bone Diagrams: 04/20/23 05:04 04/20/23 05:04 - Additional Planning My Orders: My Active Orders 04/19/23 17:00 Ertapenem [INVanz] 1 gm Sodium Chloride 0.9% Minibag [Normal Saline 0.9% Minibag] 100 ml IV Q24H Saccharomyces Boulardii [Florastor] 250 mg PO BIDWM 04/19/23 17:20 CUL, RESPIRATORY [RM] Stat 04/19/23 21:00 Montelukast [Singulair] 10 mg PO QPM guaiFENesin [Mucinex] 600 mg PO BID 04/20/23 08:[address] [Voltaren] 75 mg PO DAILYWM 04/20/23 09:00 Enoxaparin [Lovenox] 40 mg SUBQ DAILY Pantoprazole [Protonix] 40 mg PO DAILY Subjective - Subjective Patient Reports: Fatigue (Wants to sleep all day, claims the reason is poor sleep at home that previous 4 nights. She is wearing an oxymask.) Objective Vital Signs: Vital Signs - 24 hr 04/19/23 04/19/23 04/19/23 18:50 20:40 23:50 Temperature 36.5 C 36.8 C Heart Rate 98 Heart Rate [ 100 109 H Brachial] Respiratory 20 18 18 Rate Blood Pressure 133/87 H [Left Brachial artery] Blood Pressure 134/83 H [Right Brachial artery] O2 Saturation 97 94 If not protocol 5 5 5 : Oxygen Flow, liters/minute 04/20/23 04/20/23 04/20/23 00:10 06:25 07:38 Temperature 36.6 C Heart Rate 98 98 Heart Rate [ 82 Brachial] Respiratory 18 18 17 Rate Blood Pressure [Left Brachial artery] Blood Pressure 122/72 [Right Brachial artery] O2 Saturation 94 If not protocol 2 4 : Oxygen Flow, liters/minute 04/20/23 10:37 Temperature Heart Rate 90 Heart Rate [ Brachial] Respiratory 18 Rate Blood Pressure [Left Brachial artery] Blood Pressure [Right Brachial artery] O2 Saturation If not protocol 4 : Oxygen Flow, liters/minute Oxygen O2 Source Oxymask Oxygen Flow Rate 2 I&O (Last 24 Hrs): Intake and Output Totals x24h 04/18/23 04/19/23 04/20/23 23:59 23:59 23:59 Intake Total 150 3940 1490 Balance 150 3940 1490 General: No acute distress, Other (Lethargic but awaken and holds a coversation. Obese young WF) HEENT: Mucous membr. moist/pink, Other (wearing an oxymask) Neck: Supple Neuro: Oriented Times 3, Other (Lethargic) Cardiovascular: Regular rate, Other (distant heart sounds due to obesity and large breasts) Respiratory: Wheezes (R side), Rhonchi (R base) Abdomen: Soft, Other (obese) Extremities: No clubbing, No edema, No tenderness/swelling - Results Results: Laboratory Results WBC 12.7 x10^3/uL (4.8-10.8) H 04/20/23 05:04 RBC 4.15 10^6/uL (4.20-5.40) L 04/20/23 05:04 Hgb 12.0 g/dL (12.0-16.0) 04/20/23 05:04 Hct 37.3 % (37.0-47.0) 04/20/23 05:04 MCV 89.9 fL (81.0-99.0) 04/20/23 05:04 MCH 28.9 pg (27.0-31.0) 04/20/23 05:04 MCHC 32.2 g/dL (32.0-36.0) 04/20/23 05:04 RDW 13.1 % (12.0-15.0) 04/20/23 05:04 Plt Count 284 10^3/uL (130-450) 04/20/23 05:04 MPV 9.8 fL (7.9-10.8) 04/20/23 05:04 Neut # (Auto) 7.2 10^3/uL (1.5-6.6) H 04/20/23 05:04 Lymph # (Auto) 4.0 10^3/uL (1.5-3.5) H 04/20/23 05:04 [place] # (Auto) 0.7 10^3/uL (0.0-1.0) 04/20/23 05:04 Eos # (Auto) 0.7 10^3/uL (0.0-0.7) 04/20/23 05:04 Baso # (Auto) 0.1 10^3/uL (0.0-0.1) 04/20/23 05:04 Absolute Nucleated RBC 0.00 x10^3/uL 04/20/23 05:04 Total Counted 100 04/18/23 19:50 Band Neuts % (Manual) 0 % (0-10) 05/18/23 19:50 Abnorm Lymph % (Manual) 0 % 04/18/23 19:50 Nucleated RBC % 0.0 /100WBC 04/20/23 05:04 Neutrophils # (Manual) 9.4 10^3/uL (1.5-6.6) H 04/18/23 19:50 Lymphocytes # (Manual) 2.4 10^3/uL (1.5-3.5) 04/18/23 19:50 Monocytes # (Manual) 0.7 10^3/uL (0.0-1.0) 04/18/23 19:50 Eosinophils # (Manual) 1.7 10^3/uL (0-0.7) H 04/18/23 19:50 Basophils # (Manual) 0.0 10^3/uL (0-0.1) 04/18/23 19:50 Differential Comment MANUAL DIFFERENTIAL 04/18/23 19:50 Platelet Estimate NORMAL (130-450,000) (NORMAL) 04/18/23 19:50 Platelet Morphology NORMAL APPEARANCE (NORMAL) 04/18/23 19:50 RBC Morph Micro Appear NORMAL APPEARANCE (NORMAL) 04/18/23 19:50 VBG pH 7.383 (7.31-7.41) 04/18/23 19:50 VBG pCO2 45.7 mmHg (41-51) 04/18/23 19:50 VBG pO2 29.4 mmHg (25-47) 04/18/23 19:50 VBG HCO3 26.6 mmol/L (23-28) 04/18/23 19:50 VBG Total CO2 28.0 mmol/L (24-29) 04/18/23 19:50 VBG O2 Saturation 59.0 % (60-80) L 04/18/23 19:50 VBG Base Excess 1.0 mmol/L (-2 - +2) 04/18/23 19:50 Sodium 141 mmol/L (135-145) 04/20/23 05:04 Potassium 3.7 mmol/L (3.5-5.0) 04/20/23 05:04 Chloride 109 mmol/L (101-111) 04/20/23 05:04 Carbon Dioxide 24 mmol/L (21-32) 04/20/23 05:04 Anion Gap 8.0 (6-13) 04/20/23 05:04 BUN 14 mg/dL (6-20) 04/20/23 05:04 Creatinine 0.6 mg/dL (0.4-1.0) 04/20/23 05:04 Estimated GFR (MDRD) 114 (>89) 04/20/23 05:04 Glucose 98 mg/dL (70-100) 04/20/23 05:04 Lactic Acid 1.7 mmol/L (0.5-2.2) 04/19/23 05:00 Calcium 8.2 mg/dL (8.5-10.3) L 04/20/23 05:04 Total Bilirubin 0.9 mg/dL (0.2-1.0) 04/18/23 19:50 AST 17 IU/L (10-42) 04/18/23 19:50 ALT 16 IU/L (10-60) 04/18/23 19:50 Alkaline Phosphatase 66 IU/L (42-121) 04/18/23 19:50 Total Protein 7.1 g/dL (6.7-8.2) 04/18/23 19:50 Albumin 3.7 g/dL (3.2-5.5) 04/18/23 19:50 Globulin 3.4 g/dL (2.1-4.2) 04/18/23 19:50 Albumin/Globulin Ratio 1.1 (1.0-2.2) 04/18/23 19:50 Lipase 25 U/L (22-51) 04/18/23 19:50 SARS-CoV-2 (PCR) NOT DETECTED 04/18/23 19:55
[2023-04-20] MEDS: ERTAPENEM 1 GM in SODIUM CHLORIDE 0.9% MINIBAG 100 ML IV SCH (16:24)
[2023-04-20] MEDS: MONTELUKAST 10 MG TABLET PO SCH (22:30)
[2023-04-20] MEDS: IBUPROFEN 600 MG TABLET PO PRN (22:30)
[2023-04-21] MEDS: DOXYCYCLINE INJ 100 MG in SODIUM CHLORIDE 0.9% MINIBAG 100 ML IV SCH (00:32)
[2023-04-21] MEDS: SODIUM CHLORIDE FLUSH 0.9% 10 ML SYRINGE IVP SCH ×2 (00:32→09:03)
[2023-04-21] MEDS ORDERED: BENZOCAINE/MENTHOL LOZENGE MM PRN ×2 (00:39→00:49)
[2023-04-21] MEDS: SODIUM CHLORIDE 0.9% 1,000 ML IV SCH ×2 (00:48→11:34)
[2023-04-21] MEDS ORDERED: PHENOL THROAT SPRAY 177 ML MM PRN (00:49)
[2023-04-21] MEDS: IPRATROPIUM/ALBUTEROL 3 ML NEB INH SCH (07:25)
[2023-04-21 08:58] VITALS: BP 128/82
[2023-04-21] MEDS: SACCHAROMYCES BOULARDII 250 MG CAPSULE PO SCH (09:02)
[2023-04-21] MEDS: ENOXAPARIN 40 MG/0.4 ML SYRINGE SUBQ SCH (09:02)
[2023-04-21] MEDS: DICLOFENAC SODIUM DR 75 MG TABLET PO SCH (09:02)
[2023-04-21] MEDS: guaiFENesin 600 MG TABLET PO SCH (09:02)
[2023-04-21] MEDS: PANTOPRAZOLE 40 MG TABLET PO SCH (09:02)
--- NOTE | 2023-04-21 11:47 | Discharge Plan ---
Discharge Plan Problem Reviewed?: Yes Disposition: Home, Self Care Condition: Stable Prescriptions: levoFLOXacin [Levaquin] 750 mg PO DAILY 3 Days #9 tablet guaiFENesin [Mucinex] 600 mg PO BID #6 tab Diet: Regular Activity Restrictions: Activity as Tolerated Shower Restrictions: No Driving Restrictions: No Instruction Topics: Asthma Treat School, Asthma [facility] Concerns: You were hospitalized to treat a pneumonia which had caused an asthma attack and severely low oxygen levels. You needed supplemental oxygen for several days and you have been treated with IV antibiotics. You are being discharged home to take several more days of oral antibiotics. You have been prescribed Mucinex to help cough up the phlegm. You needed strong nebulized inhaler treatments here, and you are being discharged home with advice to resume all your pre-hospital medications and inhalers. All new prescriptions were electronically sent to your [facility] pharmacy in [place]. You were tested to see if you need a new order for home oxygen, and you do not; your oxygen levels remained over 93%. Plan of Treatment: As above. Care Goals: Improvement in symptoms and stabilization are the goals. Assessment: The patient understands and is agreeable with the plan. Additional Instructions or Follow Up instructions: If you have new or worsening symptoms, call your primary care provider for advice, or come to the ER. No Smoking: If you smoke, Please STOP! Call for help. Follow-up with: Ne Tucker ARNP [Primary Care Provider] -
[2023-04-21] MEDS ORDERED: DOXYCYCLINE INJ 100 MG in SODIUM CHLORIDE 0.9% MINIBAG 100 ML IV SCH (12:00)
--- NOTE | 2023-04-21 13:31 | DISCHARGE SUMMARY ---
Discharge Summary Admit Date: 04/18/23 Discharge Date: 04/21/23 Discharging Provider: Dr Manisha Schneider Primary Care Provider: JAMI Tucker Condition at Discharge: Stable Discharge Disposition: 01 Home, Self Care - HPI History of Present Illness: 37 y/o F with sob and cough which has been increasing, started few days ago. pt had covid exposure last week but tested negative here pt has hx of asthma and was found hypoxic by medics and required 4 L o2. CXR showed a PNA. currently she feels better with o2 and nebs she will be admitted to treat hypoxia, asthma exacerbation, and community- acquired PNA - HOSPITAL COURSE Hospital Course: (1) Acute respiratory failure with hypoxia Patient was put on supplemental O2 and we treated the underlying pneumonia and asthma exacerbation. By the evening before the day of discharge, her supplemental O2 was titrated down to room air. On the day of discharge, she underwent an oximetry walk test and maintained O2 saturations of 94% or above and did not need a new home O2 order. (2) Pneumonia The patient was started on empiric levaquin and doxycycline (initially these were chosen because of her penicillin, amoxicillin and cephalexin allergies). We needed to change the Levaquin ,since it can add to QT prolongation, to IV Ertepenam. Blood cultures were negative to date. Her sputum sample grew only normal oral lynne. She was discharged home to take several more days of oral Cefdinir and a Probiotic. (3) Asthmatic bronchitis with acute exacerbation The cause of her wheezing was the pneumonia. She was put on scheduled nebulized bronchodilators and Mucinex. On the day of discharge, she was still wheezing but had no tachypnea. She requested to be discharged home. She was advised to resume all her usual inhalers and a spacer was given by RT. She was prescribed Mucinex to take for several more days. (4) Hypersomnolent (G47.10) The patient preferred to stay in her room, in the dark, and napped all day. We were therefore suspicious that she was withdrawing from a drug, possibly meth. When I asked her about this, she answered that she is a night owl and then usually sleeps during the day. She denied meth use. (5) Long QT syndrome This Dx was found in old records. We tried not to use Zofran and Levaquin (6) Tobacco use This patient needs education regarding stopping smoking, given her underlying asthma. She got a nicotine patch daily for urges (7) Obesity, Class II, BMI 35-39.9 This makes aspects of her care more difficult - ALLERGIES Allergies/Adverse Reactions: Allergies Allergy/AdvReac Type Severity Reaction Status Date / Time cephalexin Allergy Intermediate Rash Verified 04/19/23 14:42 amoxicillin AdvReac Severe Anaphylaxis Verified 04/19/23 14:42 Penicillins AdvReac Severe Anaphylaxis Verified 04/19/23 14:42 - MEDICATIONS Home Medications: Ambulatory Orders Medication Instructions Recorded Confirmed Ondansetron Odt [Zofran Odt] 4 mg TL Q6H PRN #10 tablet 06/06/22 04/19/23 Albuterol 2.5 mg INH Q4H PRN 04/19/23 04/19/23 Albuterol Sulf [Ventolin Hfa 1 - 2 puffs INH Q4HR PRN 04/19/23 04/19/23 Inhaler] Diclofenac Sodium Dr [Voltaren] 75 mg PO DAILYWM 04/19/23 04/19/23 Fluticasone/Salmeterol [Advair 1 each IH DAILY 04/19/23 04/19/23 250-50 Diskus] Ipratropium/Albuterol [Combivent 1 puffs INH TID 04/19/23 04/19/23 Respimat] Montelukast [Singulair] 10 mg PO DAILY 04/19/23 04/19/23 Pantoprazole [Protonix] 40 mg PO DAILY 04/19/23 04/19/23 Cefdinir 300 mg PO BID 3 Days #6 cap 04/21/23 guaiFENesin [Mucinex] 600 mg PO BID #6 tab 04/21/23 - PHYSICAL EXAM AT DISCHARGE General Appearance: positive: No acute distress, Alert, Other (Moderately obese white female) Eyes Bilateral: positive: Normal inspection, EOMI ENT: positive: ENT inspection nml, No signs of dehydration Neck: positive: Nml inspection, No JVD Respiratory: positive: Wheezes (In all 4 lung solorzano posteriorly, but good air movement) Cardiovascular: positive: Regular rate & rhythm, No murmur Abdomen: positive: Non-tender, Other (Obese) Skin: positive: Warm, Dry Extremities: positive: Non-tender, No pedal edema Neurologic/Psychiatric: positive: Oriented x3, Motor nml - LABS Result Diagrams: 04/20/23 05:04 04/20/23 05:04 - DIAGNOSTIC IMAGING Diagnostic Imaging Results: Final report reviewed - FOLLOW UP Follow Up: See PCP in 1 to 2 weeks for hospital follow-up visit. - TIME SPENT Time Spent in Discharge (Minutes): 40
== END 2023-04-21 14:05 | disposition home or self-care (01) | DRG 193 ==
LOC: EDUNIT# → ED 19:24 → MS2 21:50
PROVIDERS: ADMIT Hospitalist; ATTEND Internal Medicine
DX: J18.9 Pneumonia, unspecified organism (principal); J96.01 Acute respiratory failure with hypoxia; J45.901 Unspecified asthma with (acute) exacerbation; G47.10 Hypersomnia, unspecified; I45.81 Long QT syndrome; F17.200 Nicotine dependence, unspecified, uncomplicated; E66.9 Obesity, unspecified; D72.829 Elevated white blood cell count, unspecified; Z20.822 Contact with and (suspected) exposure to COVID-19; Z68.35 Body mass index [BMI] 35.0-35.9, adult; Z88.0 Allergy status to penicillin
CPT/HCPCS: 36415; 71045; 80048; 80053; 82803; 83605; 83690; 85025; 87040; 87070; 87205; 87635; 94640; 94664; 94761; 96374; 96375; 99285; A9270; J1335; J1650

== ENCOUNTER 2023-08-21 08:00 | Outpatient (CLI) | payer MEDICAID ==
[2023-08-21 18:48] LABS: INFLUENZA A- RESP PCR PANEL NOT DETECTED; SARS-CoV-2 -RESP PCR PANEL NOT DETECTED
[2023-08-21 18:49] LABS: INFLUENZA B - RESP PCR PANEL NOT DETECTED; RSV- RESP PCR PANEL NOT DETECTED
== END 2023-08-21 23:59 | disposition home or self-care (01) ==
LOC: LAB.WCP 08:00
PROVIDERS: ATTEND Nurse Practitioner
DX: R05.9 Cough, unspecified (principal); Z20.822 Contact with and (suspected) exposure to COVID-19
CPT/HCPCS: 87637

== ENCOUNTER 2024-07-07 08:00 | Outpatient (CLI) | payer MEDICAID ==
[2024-07-07 11:30] LABS: BILIRUBIN,URINE NEGATIVE (NEGATIVE); GLUCOSE, URINE (UA) NEGATIVE (NEGATIVE); KETONES,URINE (UA) NEGATIVE (NEGATIVE); LEUKOCYTE ESTERASE, URINE NEGATIVE (NEGATIVE); NITRITE,URINE NEGATIVE (NEGATIVE); OCCULT BLOOD,URINE NEGATIVE (NEGATIVE); PROTEIN,URINE NEGATIVE (NEGATIVE); UROBILINOGEN,URINE 0.2 (NORMAL) E.U./dL (NORMAL)
[2024-07-07 11:32] LABS: CLARITY,URINE CLEAR (CLEAR)
[2024-07-07 11:46] LABS: BACTERIA,URINE Few /HPF (None Seen); CRYSTALS,URINE 26-50 Uric Acid /LPF; RBC,URINE 0-5 /HPF (0-5); SQUAMOUS EPITHELIAL CELL,UR MOD Squamous (<= Few); WBC,URINE 0-3 /HPF (0-5)
== END 2024-07-07 23:59 | disposition home or self-care (01) ==
LOC: LAB.WC 08:00
PROVIDERS: ATTEND Obstetrics & Gynecology
DX: O09.90 Supervision of high risk pregnancy, unspecified, unspecified trimester (principal)
CPT/HCPCS: 81001; 87086

== ENCOUNTER 2024-07-21 11:27 | Outpatient (CLI) | payer MEDICAID ==
--- NOTE | 2024-07-22 10:27 | Ultrasound Report ---
PROCEDURE: OB 1st Trimester INDICATIONS: POSITIVE TEST OUTSIDE/PRIOR DATING DATA: Last menstrual period (LMP): 05/01/2024. LMP-based estimated date of delivery (ALFREDO): 02/05/2025. First dating scan (date and location): 07/21/2024. Estimated date of delivery (ALFREDO) from first dating scan: 02/13/2025. TECHNIQUE: Real-time scanning was performed of the fetus and maternal pelvic organs, with image documentation. COMPARISON: None. FINDINGS: Intrauterine gestational sac present. Embryo: The 2nd pole are seen. [place]-rump length is 3.52 cm, compatible with estimated gestati onal age of 10 weeks 3 days. Heart rate: 169 bpm. Other: No perigestational fluid collection. Measurement variability in dating: +/- 4 weeks by LMP, +/- 7 days by mean sac diameter (use before 6 weeks gestation if crown-rump length not able to be measured), +/- 5 days by crown-rump length (6-12 weeks gestation). Maternal organs: Ovaries are not well visualized but no adnexal mass is seen. IMPRESSION: Single live intrauterine is seen with estimated gestational age of 10 weeks 3 days, corresp onding to an ultrasound ALFREDO of 02/13/2025. Reviewed by: Andrei Peoples MD on 07/22/2024 10:25 AM PDT Approved by: Andrei Peoples MD on 07/22/2024 10:25 AM PDT Station ID: [id number]
== END 2024-07-21 11:28 | disposition home or self-care (01) ==
LOC: DI 11:27
PROVIDERS: ATTEND Obstetrics & Gynecology
DX: O09.521 Supervision of elderly multigravida, first trimester (principal)

== ENCOUNTER 2024-08-04 08:00 | Outpatient (CLI) | payer MEDICAID ==
[2024-08-04 19:40] LABS: CHLAMYDIA TRACHOMATIS DNA NEGATIVE (NEGATIVE); NEISSERIA GONORRHOEAE DNA NEGATIVE (NEGATIVE); TRICHOMONAS VAGINALIS DNA NEGATIVE (NEGATIVE)
== END 2024-08-04 23:59 | disposition home or self-care (01) ==
LOC: LAB.WC 08:00
PROVIDERS: ATTEND Obstetrics & Gynecology
DX: Z11.3 Encounter for screening for infections with a predominantly sexual mode of transmission (principal)
CPT/HCPCS: 87491; 87591; 87661

== ENCOUNTER 2024-08-18 16:24 | Outpatient (CLI) | payer MEDICAID ==
[2024-08-18 21:08] LABS: BASOPHILS % (AUTO) 0.4 %; EOSINOPHILS # (AUTO) 0.2 10^3/uL (0.0-0.7); EOSINOPHILS % (AUTO) 1.8 %; HCT - HEMATOCRIT 37.1 % (37.0-47.0); HGB - HEMOGLOBIN 12.6 g/dL (12.0-16.0); LYMPHOCYTES # (AUTO) 1.9 10^3/uL (1.5-3.5); LYMPHOCYTES % (AUTO) 18.7 %; MEAN CORPUSCULAR HEMOGLOBIN 29.4 pg (27.0-31.0); MEAN CORPUSCULAR VOLUME 86.7 fL (81.0-99.0); MEAN PLATELET VOLUME 9.7 fL (7.9-10.8); MONOCYTES # (AUTO) 0.6 10^3/uL (0.0-1.0); MONOCYTES % (AUTO) 6.1 %; NEUTROPHILS # (AUTO) 7.5 10^3/uL (1.5-6.6); NEUTROPHILS % (AUTO) 72.6 %; PLT - PLATELET COUNT 242 10^3/uL (130-450); RED BLOOD COUNT 4.28 10^6/uL (4.20-5.40); RED CELL DISTRIBUTION WIDTH 12.8 % (12.0-15.0); WHITE BLOOD COUNT 10.3 x10^3/uL (4.8-10.8)
== END 2024-08-18 16:25 | disposition home or self-care (01) ==
LOC: LAB.N 16:24
PROVIDERS: ATTEND Obstetrics & Gynecology
DX: O09.90 Supervision of high risk pregnancy, unspecified, unspecified trimester (principal); Z36.89 Encounter for other specified antenatal screening
CPT/HCPCS: 36415; 85025; 86592; 86762; 86787; 86803; 86850; 86900; 86901; 87340; 87389

== ENCOUNTER 2024-08-28 16:35 | Outpatient (CLI) | payer MEDICAID | END 2024-08-28 16:36 | disposition home or self-care (01) | LOC: LAB 16:35 | PROVIDERS: ATTEND Obstetrics & Gynecology | DX: Z36.89 Encounter for other specified antenatal screening (principal) ==